=== PATIENT | female | born 1960 | race Caucasian/White ===

== ENCOUNTER 2022-07-24 11:20 | Outpatient (CLI) | payer OTHER, SELFPAY ==
--- NOTE | 2022-07-24 11:30 | CRLHL7_ITS ---
For Patients: As a result of the Cures Act, medical imaging exams and procedure reports are released immediately into your electronic medical record. You may view this report before your referring provider. If you have questions, please contact your health care provider. BILATERAL SCREENING MAMMOGRAM WITH COMPUTER-AIDED DETECTION AND TOMOSYNTHESIS TECHNIQUE: CC and MLO views were obtained. These mammographic images have been obtained using full-field digital technique. These mammographic images were interpreted with the benefit of computer-aided detection. Breast Tomosynthesis was used in this interpretation. COMPARISON FILM: 07/22/21, 05/04/20, 04/30/19 FINDINGS: The breasts are heterogeneously dense, which may obscure small masses. IMPRESSION: There is no radiographic evidence for malignancy. ASSESSMENT: BI-RADS Category 2: Benign RECOMMENDATION: Routine screening mammogram in 1 year. A lay language report of this examination will be provided to the patient. Lars Parker M.D. Diagnostic/Nuclear Medicine Radiologist [email or web address] Transcribed: 8:47 a.m. PT/Dictated by: Lars Parker MD @ 07/25/2022 8:30:00 AM (Electronically Signed)
== END 2022-07-24 11:21 | disposition home or self-care (01) ==
LOC: MAMMO 11:23
PROVIDERS: PCP Family Medicine; Visit Provider Family Medicine
DX: Z12.31 Encounter for screening mammogram for malignant neoplasm of breast (principal); R92.2 Inconclusive mammogram
CPT/HCPCS: 77063; 77067

== ENCOUNTER 2023-08-17 09:02 | Outpatient (CLI) | payer MEDICARE, OTHER, SELFPAY ==
--- NOTE | 2023-08-17 09:15 | MM_ITS ---
Patient: RASHID RODRIGUEZ Facility:?[facility] Patient ID:?[id number] Site Patient ID:?[id number]. Site :?[id number] Study:?XRay-Breast Bilateral 3D W/CAD-08/17/2023 9:33:57 AM Ordering Physician:Arely May Final Report: BILATERAL SCREENING MAMMOGRAM WITH COMPUTER-AIDED DETECTION AND TOMOSYNTHESIS TECHNIQUE: CC and MLO views were obtained. These mammographic images have been obtained using full-field digital technique. These mammographic images were interpreted with the benefit of computer-aided detection. Breast Tomosynthesis was used in this interpretation. COMPARISON FILM: 07/24/22, 07/22/21, 05/04/20. FINDINGS: The breasts are heterogeneously dense, which may obscure small masses. IMPRESSION: There is no radiographic evidence for malignancy. ASSESSMENT: BI-RADS Category 2: Benign RECOMMENDATION: Routine screening mammogram in 1 year. A lay language report of this examination will be provided to the patient. Sebastián Fried M.D. Diagnostic Radiologist [email or web address] DSM/sp R& Transcribed: 6:50 p.m. SP/Dictated by: Sebastián Fried MD @ 08/20/2023 10:21:00 AM Signed by:?Sebastián Fried MD @08/20/2023 8:47:36 PM (Electronic Signature)
== END 2023-08-17 09:03 | disposition home or self-care (01) ==
LOC: MAMMO 09:06
PROVIDERS: PCP Family Medicine; Visit Provider Family Medicine
DX: Z12.31 Encounter for screening mammogram for malignant neoplasm of breast (principal); R92.2 Inconclusive mammogram
CPT/HCPCS: 77063; 77067

== ENCOUNTER 2024-09-10 11:24 | Outpatient (CLI) | payer MEDICARE, OTHER, SELFPAY ==
--- NOTE | 2024-09-10 11:30 | CRLHL7_ITS ---
For Patients: As a result of the Century Cures Act, medical imaging exams and procedure reports are released immediately into your electronic medical record. You may view this report before your referring provider. If you have questions, please contact your health care provider. INDICATION: BILATERAL SCREENING MAMMOGRAM, ASYMPOTMATIC 64 Y/O FEMALE COMPARISON: 08/17/2023, 07/22/2022, 07/22/2021 TECHNIQUE: Digital mammogram in CC and MLO projections including computer-aided detection (CAD) and tomosynthesis. BREAST COMPOSITION: The breasts are heterogeneously dense, which may obscure small masses. FINDINGS: No suspicious findings. ASSESSMENT: BI-RADS 1 Negative RECOMMENDATION: Annual screening mammogram. A lay language report of this examination will be provided to the patient. Dictated by: Sebastián Fried MD @ 09/12/2024 08:09:35 (Electronically Signed)
== END 2024-09-10 11:25 | disposition home or self-care (01) ==
LOC: MAMMO 11:25
PROVIDERS: PCP Family Medicine; Visit Provider Family Medicine
DX: Z12.31 Encounter for screening mammogram for malignant neoplasm of breast (principal); R92.333 Mammographic heterogeneous density, bilateral breasts
CPT/HCPCS: 77063; 77067

== ENCOUNTER 2025-02-13 06:18 | Outpatient (CLI) | payer MEDICARE, OTHER, SELFPAY ==
--- NOTE | 2025-02-13 07:54 | P.ANES_ITS ---
Anesthesia Charges Start Date/Time Anesthesia Start Date: 02/13/25 Anesthesia Start Time: 07:25 Stop Date/Time Anesthesia Stop Date: 02/13/25 Anesthesia Stop Time: 07:52 Coding CPT Codes CPT Codes: WILFRED LWR INTST NDSC NOS - [id number] ([id number]) P2 - PATIENT W/MILD SYST DISEASE, QK - WIRE STOCKKEEPER 2-4 CNCRNT ANES PROC, QX - LUNCHEONETTE MANAGER SVC W/ MD MED DIRECTION
--- NOTE | 2025-02-13 07:54 | W.ANESCHARGE ---
Anesthesia Charges Start Date/Time Anesthesia Start Date: 02/13/25 Anesthesia Start Time: 07:25 Stop Date/Time Anesthesia Stop Date: 02/13/25 Anesthesia Stop Time: 07:52 Coding CPT Codes CPT Codes: WILFRED LWR INTST NDSC NOS - [id number] ([id number]) P2 - PATIENT W/MILD SYST DISEASE, QK - UI DEVELOPER 2-4 CNCRNT ANES PROC, QX - RELIGION INSTRUCTOR SVC W/ MD MED DIRECTION
--- NOTE | 2025-02-13 08:31 | P.ANES_ITS ---
Anesthesia Charges Start Date/Time Anesthesia Start Date: 02/13/25 Anesthesia Start Time: 07:25 Stop Date/Time Anesthesia Stop Date: 02/13/25 Anesthesia Stop Time: 07:52 Coding CPT Codes CPT Codes: WILFRED LWR INTST NDSC NOS - [id number] ([id number]) P2 - PATIENT W/MILD SYST DISEASE, QK - ARMORED TRUCK DRIVER 2-4 CNCRNT ANES PROC, QX - OPERATIONS SYSTEMS SPECIALIST SVC W/ MD MED DIRECTION
--- NOTE | 2025-02-13 08:31 | W.ANESCHARGE ---
Anesthesia Charges Start Date/Time Anesthesia Start Date: 02/13/25 Anesthesia Start Time: 07:25 Stop Date/Time Anesthesia Stop Date: 02/13/25 Anesthesia Stop Time: 07:52 Coding CPT Codes CPT Codes: WILFRED LWR INTST NDSC NOS - [id number] ([id number]) P2 - PATIENT W/MILD SYST DISEASE, QK - FISH SMOKER 2-4 CNCRNT ANES PROC, QX - ENDOCRINOLOGY TEACHER SVC W/ MD MED DIRECTION
== END 2025-02-13 06:19 | disposition home or self-care (01) ==
PROVIDERS: PCP Family Medicine; Visit Provider Internal Medicine Gastroenterology
DX: Z12.11 Encounter for screening for malignant neoplasm of colon (principal); Z12.2 Encounter for screening for malignant neoplasm of respiratory organs
CPT/HCPCS: 00811; 00812; 45380; J2704